=== PATIENT | male | born 1930 | race Caucasian/White ===

== ENCOUNTER 2017-11-28 17:29 | Emergency (ER) | payer MEDICARE ==
--- NOTE | 2017-11-28 18:13 | RAD ---
PORTABLE CHEST: 11/28/17 HISTORY: Cough. Shortness of breath. COMPARISON: 11/28/16 Mild cardiomegaly. Postop sternotomy change. No evidence of focal infiltrate. No evidence of vascular congestion or edema. IMPRESSION: Cardiomegaly. No acute lung process. POS: [facility]
[2017-11-28 19:11] LABS: #Eosinphils 0.4 thou/uL (0.0-0.7); #Lymphocytes 2.2 thou/uL (1.20-3.40); #Monocytes 0.9 thou/uL (0.11-0.59); #Neutrophils 3.8 thou/uL (1.40-6.50); %Basophils 0.6 % (0.0-1.0); %Eosinophils 4.8 % (0.0-10.0); %Lymphocytes 29.6 % (21.0-51.0); %Monocytes 12.3 % (0.0-10.0); %Neutrophils 52.7 % (42.0-75.0); Mean Corpuscular HGB CONC 32.3 g/dL (32.0-36.0); Mean Corpuscular Hemoglobin 32.7 pg (27.0-31.0); Platelet Count 211 thou/uL (130-400); RBC Distribution Width 12.2 % (11.5-14.5); Red Blood Cell (RBC) Count 3.99 mill/uL (4.70-6.10); White Blood Cell (WBC) Count 7.3 thou/uL (4.8-10.8)
[2017-11-28 19:21] LABS: Anion Gap 14 mmol/L (10-20); BUN (Urea Nitrogen) 21 mg/dL (8.4-25.7); Calc. Creatinine Clearance 0 mL/min (70-130); Calcium 8.8 mg/dL (7.8-10.44); Carbon Dioxide 27 mmol/L (23-31); Chloride 101 mmol/L (98-107); Estimated GFR-MDRD 57; Glucose 104 mg/dL (83-110); Potassium 3.5 mmol/L (3.5-5.1); Sodium 138 mmol/L (136-145)
[2017-11-28 19:26] LABS: CKMB 2.3 ng/mL (0-6.6); Troponin I 0.066 ng/mL (< 0.028)
== END 2017-11-28 20:26 | disposition home or self-care (01) ==
LOC: ERS 17:29
DX: R09.89 Other specified symptoms and signs involving the circulatory and respiratory systems (principal); R47.02 Dysphasia; E11.9 Type 2 diabetes mellitus without complications; E78.5 Hyperlipidemia, unspecified; I11.0 Hypertensive heart disease with heart failure; I50.9 Heart failure, unspecified; Z87.891 Personal history of nicotine dependence
CPT/HCPCS: 36415; 71045; 80048; 82553; 83880; 84484; 85025; 93005; 94640

== ENCOUNTER 2018-02-16 11:33 | Emergency (ER) | payer MEDICARE ==
[2018-02-16 12:02] LABS: #Eosinphils 0.4 thou/uL (0.0-0.7); #Lymphocytes 1.5 thou/uL (1.20-3.40); #Monocytes 0.5 thou/uL (0.11-0.59); #Neutrophils 8.3 thou/uL (1.40-6.50); %Basophils 0.1 % (0.0-1.0); %Eosinophils 3.4 % (0.0-10.0); %Lymphocytes 13.7 % (21.0-51.0); %Monocytes 4.8 % (0.0-10.0); Hemoglobin 13.5 g/dL (14.0-18.0); Mean Corpuscular HGB CONC 32.9 g/dL (32.0-36.0); Mean Corpuscular Hemoglobin 31.5 pg (27.0-31.0); Mean Corpuscular Volume 95.6 fl (80.0-94.0); Mean Platelet Volume 7.9 fL (7.4-10.4); Platelet Count 278 thou/uL (130-400); RBC Distribution Width 12.6 % (11.5-14.5); Red Blood Cell (RBC) Count 4.28 mill/uL (4.70-6.10); White Blood Cell (WBC) Count 10.6 thou/uL (4.8-10.8)
--- NOTE | 2018-02-16 12:10 | RAD ---
PORTABLE CHEST 1 VIEW: Date: 02/16/18 Time: 1143 hours HISTORY: Weakness, vomiting, abdominal distention. FINDINGS: Comparison made with exam of 11/28/17. The heart is enlarged. Changes of median sternotomy are again seen. The lungs are well expanded witho ut focal areas of consolidation, pneumothorax, cathy pulmonary edema, or pleural effusions. IMPRESSION: No acute process. POS: [facility]
[2018-02-16 12:23] LABS: ALT (SGPT) 11 U/L (8-55); AST (SGOT) 15 U/L (5-34); Albumin 3.9 g/dL (3.4-4.8); Alkaline Phosphatase 152 U/L (40-150); Anion Gap 15 mmol/L (10-20); BUN (Urea Nitrogen) 26 mg/dL (8.4-25.7); Bilirubin, Total 0.5 mg/dL (0.2-1.2); CK (CPK) 89 U/L (30-200); Calc. Creatinine Clearance 0 mL/min (70-130); Calcium 9.5 mg/dL (7.8-10.44); Carbon Dioxide 25 mmol/L (23-31); Chloride 100 mmol/L (98-107); Estimated GFR-MDRD 51; Globulin 3.1 g/dL (2.4-3.5); Glucose 264 mg/dL (83-110); Potassium 4.2 mmol/L (3.5-5.1); Sodium 136 mmol/L (136-145)
[2018-02-16 12:27] LABS: CKMB 2.7 ng/mL (0-6.6); Troponin I 0.056 ng/mL (< 0.028)
[2018-02-16 13:02] LABS: Bilirubin Negative (Negative); Blood, Urine Small (Negative); Clarity CLEAR (Clear); Glucose, Urine (Dipstick) Negative (Negative); Leukocyte Negative (Negative); Nitrite Negative (Negative); Protein, Urine (Dipstick) Trace mg/dL (Neg-Trace); Specific Gravity, Urine 1.017 (1.002-1.036); pH, Urine 6.5 (5.0-9.0)
[2018-02-16 13:05] LABS: Bacteria/HPF None Seen HPF (None Seen); Hyaline Casts/LPF 0-3 HYALINE CAST LPF (0-3 Hyaline); Pathc Cast-AUWi Flag 0.87 (0-2.49); Squamous Epithelial 0-3 HPF (0-3); WBC/HPF 0-3 HPF (0-3)
--- NOTE | 2018-02-16 13:41 | CT ---
ABDOMEN AND PELVIC CT SCAN WITH IV CONTRAST: Date: 02/16/18 HISTORY: 87-year-old male with history of generalized weakness, nausea, vomiting, abdominal pain and distentio n, and urinary retention. FINDINGS: Small right pleural effusion. Moderate size hiatal hernia. Cardiomegaly with postop midline sternotom y. There is some calcification in the apex of the left ventricle, possibly related to infarct/scar. Cholelithiasis without evidence for gallbladder wall distention or pericholecystic fluid or fat stran ding. The liver, pancreas, and spleen are unremarkable. Small right renal hypodensity. No renal calcu lauren or acute obstruction. Normal appearing appendix. Bilateral fat-containing inguinal hernias, sl ightly larger on the right side. Moreland catheter in place. Bony demineralization with some vertical he ight loss of L2 and L3 with some associated partial fusion. IMPRESSION: 1. No significant acute process in the abdomen or pelvis. 2. Moderate size hiatal hernia. 3. Small right pleural effusion. 4. Cholelithiasis without evidence for cholecystitis. 5. No renal calculus or obstruction. 6. Normal appearing appendix. 7. Left hip nail stabilizes the left hip. POS: [facility]
--- NOTE | 2018-02-16 15:25 | MRI ---
LUMBAR SPINE MRI WITHOUT IV CONTRAST: Date: 02/16/18 HISTORY: Generalized weakness, nausea, vomiting, abdominal pain and distention, and low back pain. FINDINGS: Conus medullaris region is unremarkable, terminating at approximately L1. There is slight vertical he ight loss of L1 vertebral body with fairly extensive marrow edema within the vertebral body, evidence for a compression fracture. There is no significant retropulsion or associated canal stenosis. The t hecal sac below the level of L1 appears distorted, suggesting some chronic arachnoiditis or scarring. No significant canal stenosis at L1-L2. At L2-L3, there is partial fusion which has more the appearance of old surgery, although I do not hav e a history of that. Conceivably, this could be related to old infection, or even possibly old trauma . There is moderate central canal and lateral recess stenosis, worse on the right side, at L2-L3. Isiaah ateral foraminal stenosis at this level as well, worse on the right side. Mild lateral recess stenosis at L3-L4 with moderate bilateral foraminal stenosis. Disc space narrowing and hypertrophic osteophytosis at L4-L5 with mild bilateral lateral recess steno sis and moderate bilateral foraminal stenosis. Moderate lateral recess stenosis and foraminal stenosis at L5-S1. IMPRESSION: Abnormal marrow signal involving the L1 vertebral body with very slight vertical height loss, evidenc e for acute compression-type fracture, without evidence for retropulsion. Fusion changes at L2-L3 of uncertain etiology, with moderate to severe central canal and lateral recess stenosis and foraminal s tenosis. Otherwise multilevel variable severity canal, lateral recess, and foraminal stenosis. POS: [facility]
[2018-02-16] MEDS ORDERED: ISOVUE-370 76%-LOCM 1 ML ONE (18:30)
== END 2018-02-16 16:59 | disposition home or self-care (01) ==
LOC: ERS 11:33
DX: R53.1 Weakness (principal); M84.48XA Pathological fracture, other site, initial encounter for fracture; M85.80 Other specified disorders of bone density and structure, unspecified site; E11.9 Type 2 diabetes mellitus without complications; E78.5 Hyperlipidemia, unspecified; I25.2 Old myocardial infarction; I11.0 Hypertensive heart disease with heart failure; I50.9 Heart failure, unspecified; Z86.73 Personal history of transient ischemic attack (TIA), and cerebral infarction without residual deficits; Z87.891 Personal history of nicotine dependence
CPT/HCPCS: 51702; 71045; 72148; 74177; 80053; 81003; 81015; 82553; 83605; 83880; 84484; 85025; 87086; 93005

== ENCOUNTER 2018-03-05 21:40 | Emergency (ER) | payer MEDICARE ==
[2018-03-05 22:47] LABS: #Eosinphils 0.3 thou/uL (0.0-0.7); #Lymphocytes 1.6 thou/uL (1.20-3.40); #Monocytes 0.6 thou/uL (0.11-0.59); #Neutrophils 5.1 thou/uL (1.40-6.50); %Basophils 0.6 % (0.0-1.0); %Eosinophils 4.2 % (0.0-10.0); %Monocytes 7.4 % (0.0-10.0); %Neutrophils 66.8 % (42.0-75.0); Hemoglobin 13.4 g/dL (14.0-18.0); Mean Corpuscular HGB CONC 33.7 g/dL (32.0-36.0); Mean Platelet Volume 7.9 fL (7.4-10.4); Platelet Count 302 thou/uL (130-400); RBC Distribution Width 12.7 % (11.5-14.5); Red Blood Cell (RBC) Count 4.17 mill/uL (4.70-6.10); White Blood Cell (WBC) Count 7.6 thou/uL (4.8-10.8)
[2018-03-05 23:08] LABS: ALT (SGPT) 9 U/L (8-55); AST (SGOT) 12 U/L (5-34); Albumin 3.6 g/dL (3.4-4.8); Alkaline Phosphatase 173 U/L (40-150); Anion Gap 14 mmol/L (10-20); BUN (Urea Nitrogen) 20 mg/dL (8.4-25.7); Bilirubin, Total 0.6 mg/dL (0.2-1.2); Calc. Creatinine Clearance 0 mL/min (70-130); Calcium 9.3 mg/dL (7.8-10.44); Carbon Dioxide 26 mmol/L (23-31); Chloride 103 mmol/L (98-107); Estimated GFR-MDRD 55; Glucose 281 mg/dL (83-110); Protein, Total 6.6 g/dL (5.8-8.1); Sodium 139 mmol/L (136-145)
[2018-03-05 23:11] LABS: CKMB 2.1 ng/mL (0-6.6); Troponin I 0.038 ng/mL (< 0.028)
[2018-03-05] MEDS ORDERED: traMADol HCl 50 MG TAB ONE (23:39)
[2018-03-05 23:58] LABS: Bilirubin Negative (Negative); Blood, Urine Negative (Negative); Clarity CLOUDY (Clear); Glucose, Urine (Dipstick) 250 mg/dL (Negative); Leukocyte Moderate (Negative); Nitrite Negative (Negative); Protein, Urine (Dipstick) Trace mg/dL (Neg-Trace); Specific Gravity, Urine 1.014 (1.002-1.036); Urobilinogen 0.2 mg/dL (0.2-1.0); pH, Urine 5.5 (5.0-9.0)
[2018-03-06 00:01] LABS: Bacteria/HPF Rare-Few HPF (None Seen); Hyaline Casts/LPF 0-3 HYALINE CAST LPF (0-3 Hyaline); Pathc Cast-AUWi Flag 0.14 (0-2.49); RBC/HPF None Seen HPF (0-3); Squamous Epithelial 0-3 HPF (0-3); Yeast-AUWi Flag 9.1 (0-25.0)
[2018-03-06 00:18] LABS: Oval Fat Bodies/HPF None Seen HPF (None Seen); Renal Epithelial 0-3 HPF (0-3); Sperm/HPF None Seen HPF (None Seen); Transitional Epithelial NONE SEEN HPF (0-3); Trichomonas/HPF None Seen HPF (None Seen); Yeast-All Forms None Seen HPF (None Seen)
== END 2018-03-06 00:49 | disposition home or self-care (01) ==
LOC: ERS 21:40
DX: E11.65 Type 2 diabetes mellitus with hyperglycemia (principal); N39.0 Urinary tract infection, site not specified; E78.5 Hyperlipidemia, unspecified; I25.2 Old myocardial infarction; I11.0 Hypertensive heart disease with heart failure; I50.9 Heart failure, unspecified; Z86.73 Personal history of transient ischemic attack (TIA), and cerebral infarction without residual deficits; Z87.891 Personal history of nicotine dependence; Z79.899 Other long term (current) drug therapy; Z79.4 Long term (current) use of insulin; Z79.82 Long term (current) use of aspirin
CPT/HCPCS: 36416; 51701; 80053; 81003; 81015; 82553; 84484; 85025; 87077; 87086; 93005

== ENCOUNTER 2018-04-03 15:03 | Outpatient (CLI) | payer MEDICARE ==
--- NOTE | 2018-04-03 15:47 | RAD ---
RADIOGRAPH LUMBAR SPINE 2 VIEWS: 04/03/18 HISTORY: 87-year-old male with ICD-10: M48.56XA collapsed vertebra. COMPARISON: There are no prior plain radiographs of the lumbar spine. There is a noncontrast MRI of the lumbar sp ine of 02/16/18. FINDINGS: There is severe, diffuse osteopenia. On the MRI of 02/16/18, there was what was then an acute or subacu te compression fracture of L1, with only mild loss of height. That has severely worsened, such that t he L1 vertebral body is now collapsed, with 75% loss of height or greater, especially anteriorly. The re is some bony retropulsion qualifying this as a burst fracture. An old compression fracture of L2 vertebral body was demonstrated on a previous MRI. It is uncertain whether or not the loss of height has slightly worsened since then. It probably has. There is somewha t severe disc space narrowing at L4-5 and L5-S1. IMPRESSION: 1. Further collapse of the L1 compression fracture, now with severe loss of height. 2. Probable further loss of height of the L2 compression fracture. 3. High grade degenerative disc disease at L4-5 and L5-S1. 4. Severe, diffuse osteopenia. JN [] POS: [facility]
== END 2018-04-03 15:04 | disposition home or self-care (01) ==
LOC: TBSIIMAG 15:03
PROVIDERS: ATTEND Neurological Surgery
DX: M48.56XA Collapsed vertebra, not elsewhere classified, lumbar region, initial encounter for fracture (principal); R29.890 Loss of height; M51.37 Other intervertebral disc degeneration, lumbosacral region; M51.36 Other intervertebral disc degeneration, lumbar region; M85.80 Other specified disorders of bone density and structure, unspecified site
CPT/HCPCS: 72100

== ENCOUNTER 2018-04-11 13:47 | Emergency (ER) | payer MEDICARE ==
[2018-04-11 14:25] LABS: #Eosinphils 0.2 thou/uL (0.0-0.7); #Lymphocytes 1.4 thou/uL (1.20-3.40); #Monocytes 0.6 thou/uL (0.11-0.59); #Neutrophils 5.7 thou/uL (1.40-6.50); %Basophils 0.6 % (0.0-1.0); %Eosinophils 2.3 % (0.0-10.0); %Lymphocytes 17.9 % (21.0-51.0); %Monocytes 7.2 % (0.0-10.0); Hemoglobin 13.1 g/dL (14.0-18.0); Mean Corpuscular HGB CONC 33.3 g/dL (32.0-36.0); Mean Corpuscular Hemoglobin 32.1 pg (27.0-31.0); Mean Corpuscular Volume 96.5 fL (78.0-98.0); Mean Platelet Volume 9.4 fL (7.4-10.4); Platelet Count 186 thou/uL (130-400); RBC Distribution Width 13.1 % (11.5-14.5); Red Blood Cell (RBC) Count 4.07 mill/uL (4.70-6.10); White Blood Cell (WBC) Count 7.9 thou/uL (4.8-10.8)
--- NOTE | 2018-04-11 14:47 | RAD ---
PORTABLE AP CHEST RADIOGRAPH: Date: 04-11-18 History: Irregular heartbeat. Comparison: 02-16-18 FINDINGS: Post-surgical changes related to median sternotomy are again present. There is a fracture of the supe rior sternal wire. Cardiac silhouette is magnified by projection and likely mildly enlarged and stabl e in size from prior study. Pulmonary vasculature is within normal limits. Lungs are clear. There is osteopenia. There has been no interval change from prior exam. IMPRESSION: No acute cardiopulmonary process. POS: [facility]
[2018-04-11 14:49] LABS: ALT (SGPT) 11 U/L (8-55); AST (SGOT) 16 U/L (5-34); Albumin 3.6 g/dL (3.4-4.8); Alkaline Phosphatase 144 U/L (40-150); Anion Gap 10 mmol/L (10-20); BUN (Urea Nitrogen) 15 mg/dL (8.4-25.7); Bilirubin, Total 0.4 mg/dL (0.2-1.2); Calc. Creatinine Clearance 0 mL/min (70-130); Calcium 9.1 mg/dL (7.8-10.44); Carbon Dioxide 25 mmol/L (23-31); Chloride 104 mmol/L (98-107); Estimated GFR-MDRD 59; Globulin 2.5 g/dL (2.4-3.5); Glucose 226 mg/dL (83-110); Magnesium 1.7 mg/dL (1.6-2.6); Potassium 3.9 mmol/L (3.5-5.1); Protein, Total 6.1 g/dL (5.8-8.1); Sodium 135 mmol/L (136-145)
== END 2018-04-11 16:11 | disposition home or self-care (01) ==
LOC: ERS 13:47
DX: I49.3 Ventricular premature depolarization (principal); E11.9 Type 2 diabetes mellitus without complications; I25.2 Old myocardial infarction; I11.0 Hypertensive heart disease with heart failure; I50.9 Heart failure, unspecified; Z87.891 Personal history of nicotine dependence; Z79.899 Other long term (current) drug therapy
CPT/HCPCS: 36415; 36416; 71045; 80053; 83735; 83880; 84484; 85025; 93005

== ENCOUNTER 2018-05-22 10:55 | Outpatient (CLI) | payer MEDICARE ==
--- NOTE | 2018-05-22 13:38 | MRI ---
MRI LUMBAR SPINE WITHOUT CONTRAST: HISTORY: Closed compression fracture, S32.02A, S32.030A. COMPARISON: Lumbar spine radiographs from 04/03/2018 and MRI from 02/16/2018. FINDINGS: Aortic contour is nonaneurysmal. No retroperitoneal adenopathy. Mild bilateral symmetric paraspinal muscle atrophy. Relative to the prior examination, there is worsened height loss of the T12 compression fracture with approximately 30% anterior height loss, 60% height loss of the superior endplate, and 15% posterior vertebral body height loss. There is retropulsion, approximately 5 mm. There is crowding of the ner ve roots with narrowing of the spinal canal to approximately 7 mm centrally. There is new stress paradise ma of the posterior elements bilaterally. At T12, there is new stress edema of the anterior-inferior vertebral body, predominantly on the anterior vertebral body, extending to the right side of the divya tebral body; stress type fracture. The remainder of the findings are unchanged. Multilevel superior degenerative changes. Healing modic type changes of the L4 superior endplate. IMPRESSION: 1. Further height loss of the L1 compression fracture, now with greater than 50% superior endplate h eight loss, as well as height loss of the anterior and posterior vertebral body with retropulsion, 4 mm, narrowing of the spinal canal and crowding of the nerve roots. 2. New stress type fracture without height loss of the T12 anterior vertebral body, extending from c entral anterior to right posterior, without posterior element extension. 3. Stress edema of the posterior elements of L1 bilaterally. 4. Healing modic changes of the superior endplate of L4. 5. New prevertebral soft tissue swelling at the level of T12 and L1 may be reflective of the underly ing fracture. There is, however, extensive loss of normal T1 signal of the L1 vertebral body. An un derlying infectious process cannot be totally excluded, and a post contrast study may be beneficial. POS: [facility]
== END 2018-05-22 10:56 | disposition home or self-care (01) ==
LOC: MRI 10:55
PROVIDERS: ATTEND Specialist
DX: M48.56XA Collapsed vertebra, not elsewhere classified, lumbar region, initial encounter for fracture (principal); M48.44XA Fatigue fracture of vertebra, thoracic region, initial encounter for fracture
CPT/HCPCS: 72148

== ENCOUNTER 2018-06-19 12:44 | Outpatient (CLI) | payer MEDICARE ==
[2018-06-19] MEDS ORDERED: Gadobenate Dimeglumine 529 MG/1 ML (20ML VIAL) ONE (12:55)
--- NOTE | 2018-06-20 11:40 | MRI ---
MRI LUMBAR SPINE WITH CONTRAST: COMPARISON: 02/16/2018, 05/22/2018. FINDINGS: On the sagittal T2 weighted image, there is persistent linear hyperintensity on the superior end plat e of L1. Both contrast images demonstrate heterogeneous enhancement. There is evidence of enhanceme nt involving the anterior inferior T12 level. There is evidence of enhancement of the anterior left and right paraspinal tissues as well as along the posterior aspect of the L1 vertebral body, along th e anterior epidural space. When compared to the most recent examination, there is no significant los s of vertebral body height. When compared to the examination of February 2018, there is loss of vertebra l body height. There is retropulsion at L1 with at least moderate central canal stenosis. Severe ri ght and left foraminal narrowing. There is no abnormal enhancement in the thecal sac including the cauda equina and conus medullaris. IMPRESSION: Stable linear edema involving the superior aspect of L1 with stable loss of vertebral body height. T here is evidence of enhancement involving the T12 and L1 vertebral bodies, with heterogeneous enhance ment at L1. There is evidence of paraspinal and anterior epidural enhancement. Phlegmonous tissue v ersus posttraumatic paraspinal soft tissue changes are differential considerations. An underlying in fectious process such as osteomyelitis at L1 and T12 cannot be excluded. Non contrast sagittal T1 im ages would be beneficial. Continued surveillance is recommended. POS: [facility]
== END 2018-06-19 12:45 | disposition home or self-care (01) ==
LOC: MRI 12:44
PROVIDERS: ATTEND Specialist
DX: S22.080A Wedge compression fracture of T11-T12 vertebra, initial encounter for closed fracture (principal)
CPT/HCPCS: 72149; A9579

== ENCOUNTER 2018-08-12 08:55 | Inpatient (IN) | payer MEDICARE ==
[2018-08-12] MEDS ORDERED: Albuterol Sulfate 2.5 mg/3 ml Neb ONE (09:08)
[2018-08-12 09:42] LABS: #Basophils 0.1 thou/uL (0.0-0.2); #Eosinphils 0.1 thou/uL (0.0-0.7); #Lymphocytes 1.6 thou/uL (1.20-3.40); #Monocytes 0.4 thou/uL (0.11-0.59); %Lymphocytes 22.5 % (21.0-51.0); %Monocytes 5.1 % (0.0-10.0); %Neutrophils 69.4 % (42.0-75.0); Hemoglobin 12.1 g/dL (14.0-18.0); Mean Corpuscular HGB CONC 32.5 g/dL (32.0-36.0); Mean Corpuscular Hemoglobin 30.7 pg (27.0-31.0); Mean Corpuscular Volume 94.5 fL (78.0-98.0); Mean Platelet Volume 9.2 fL (7.4-10.4); Platelet Count 235 thou/uL (130-400); RBC Distribution Width 13.2 % (11.5-14.5); Red Blood Cell (RBC) Count 3.95 mill/uL (4.70-6.10); White Blood Cell (WBC) Count 7.2 thou/uL (4.8-10.8)
[2018-08-12 10:03] LABS: Bilirubin Negative (Negative); Blood, Urine Negative (Negative); Clarity CLEAR (Clear); Glucose, Urine (Dipstick) 100 mg/dL (Negative); Leukocyte Negative (Negative); Nitrite Negative (Negative); Protein, Urine (Dipstick) Trace mg/dL (Neg-Trace); Specific Gravity, Urine 1.016 (1.002-1.036)
[2018-08-12 10:05] LABS: ALT (SGPT) 12 U/L (8-55); AST (SGOT) 14 U/L (5-34); Albumin 3.2 g/dL (3.4-4.8); Alkaline Phosphatase 157 U/L (40-150); Anion Gap 13 mmol/L (10-20); BUN (Urea Nitrogen) 15 mg/dL (8.4-25.7); Bilirubin, Total 0.5 mg/dL (0.2-1.2); Calc. Creatinine Clearance 0 mL/min (70-130); Calcium 8.4 mg/dL (7.8-10.44); Carbon Dioxide 24 mmol/L (23-31); Chloride 105 mmol/L (98-107); Estimated GFR-MDRD 61; Globulin 2.8 g/dL (2.4-3.5); Glucose 211 mg/dL (83-110); Potassium 3.6 mmol/L (3.5-5.1); Sodium 138 mmol/L (136-145)
[2018-08-12 10:09] LABS: CKMB 1.3 ng/mL (0-6.6); Troponin I 0.031 ng/mL (< 0.028)
[2018-08-12] MEDS ORDERED: Furosemide 40 MG/4 ML VIAL ONE ×2 (10:38→14:05)
[2018-08-12] MEDS ORDERED: Nitroglycerin 2% Ointment 1 INCH/1 GM Packet ONE (10:38)
--- NOTE | 2018-08-12 10:41 | RAD ---
RADIOGRAPH CHEST 1 VIEW: Date: 08-12-18 Time: 9:08 A.M. HISTORY: 88-year-old male with dyspnea and cough. COMPARISON: 02-16-18 FINDINGS: Again noted are the sternotomy wires and the cardiomegaly. There is pulmonary venous engorgement. No consolidation. Interstitial markings are prominent, and there is questionable minimal pulmonary inter stitial edema. No pneumothorax. Mild streaky density at left lower lobe may represent scar or subsegm ental atelectasis. IMPRESSION: 1. Cardiomegaly. 2. Findings suggestive of minimal or mild congestive heart failure. CASH POS: [facility]
[2018-08-12] MEDS ORDERED: Diabetic Tussin 200 MG/10 ML UDCUP PO PRN (11:27)
[2018-08-12] MEDS ORDERED: Nitroglycerin 0.4 MG TAB (25 Tab Bottle) SL PRN (11:27)
[2018-08-12] MEDS ORDERED: Loratadine 10 MG TAB PO PRN (11:27)
[2018-08-12] MEDS ORDERED: hydrALAZINE 20 MG/ML VIAL SLOW IVP PRN (11:27)
[2018-08-12] MEDS ORDERED: Eucerin (Mineral Oil/Petrolatum,White) 30 gm Jar TOP PRN (11:27)
[2018-08-12] MEDS ORDERED: Dextrose 5% in Water 1,000 ML IV PRN (11:27)
[2018-08-12] MEDS ORDERED: Bisacodyl 10 MG SUPP PR PRN (11:27)
[2018-08-12] MEDS ORDERED: Acetaminophen 325 MG TAB PO PRN (11:27)
[2018-08-12] MEDS ORDERED: Ondansetron PF 4 MG/2 ML Vial IVP PRN (11:27)
[2018-08-12] MEDS ORDERED: HYDROcodone/Acetaminophen 5/325 mg Tablet PO PRN (11:27)
[2018-08-12] MEDS ORDERED: Loperamide HCl 2 MG CAP PO PRN (11:27)
[2018-08-12] MEDS ORDERED: Calcium Carbonate 500 MG ChewTAB PO PRN (11:27)
[2018-08-12] MEDS ORDERED: Dextrose 50% Abboject 50 ML SYRINGE SLOW IVP PRN (11:27)
[2018-08-12] MEDS ORDERED: Bisacodyl 5 MG TAB PO PRN (11:27)
[2018-08-12] MEDS ORDERED: Senokot S 8.6-50 MG TAB PO PRN (11:27)
[2018-08-12] MEDS ORDERED: Zolpidem Tartrate 5 MG TAB PO PRN (11:27)
[2018-08-12] MEDS ORDERED: Ondansetron ODT 4 MG TAB PO PRN (11:27)
[2018-08-12] MEDS ORDERED: Sodium Chloride 0.65% Nasal 44 ML BOT EA NARE PRN (11:27)
[2018-08-12] MEDS ORDERED: Artificial Tears 18 DROP/0.9 ML EA EYE PRN (11:27)
--- NOTE | 2018-08-12 12:30 | HP ---
PRIMARY CARE PHYSICIAN: Shaheen Knox M.D. REASON FOR ADMISSION: Mild congestive heart failure exacerbation. HISTORY OF PRESENT ILLNESS: This is an 88-year-old male, who lives at home. He is mostly bed bound, only able to get out of bed with a walker to wheelchair. He has baseline NYHA 3-4 stage dyspnea. For the last 2-3 days, the patient's family member noticed that he has increasing shortness of breath. Family member also reports that he was recently diagnosed with bronchitis and he was given antibiotic therapy that did not improve his shortness of breath. He is having cough. He is having orthopnea. He has lower extremity edema. He did not have any fever, chills, palpitations, or chest pain. Family member was worried about shortness of breath and that is why they brought him to emergency room for evaluation. Unfortunately, this patient has underlying cognitive deficit and dementia. He cannot provide any good history, but family member, daughter, and were present, who provided history. The patient did not have any UTI symptoms. He did not have any constipation, diarrhea, melena, hematochezia. REVIEW OF SYSTEMS: The following complete review of systems was negative, unless otherwise mentioned in the HPI or below: Constitutional: Weight loss or gain, ability to conduct usual activities. Skin: Rash, itching. Eyes: Double vision, pain. ENT/Mouth: Nose bleeding, neck stiffness, pain, tenderness. Cardiovascular: Palpitations, dyspnea on exertion, orthopnea. Respiratory: Shortness of breath, wheezing, cough, hemoptysis, fever, or night sweats. Gastrointestinal: Poor appetite, abdominal pain, heartburn, nausea, vomiting, constipation, or diarrhea. Genitourinary: Urgency, frequency, dysuria, nocturia. Musculoskeletal: Pain, swelling. Neurologic/Psychiatric: Anxiety, depression. Allergy/Immunologic: Skin rash, bleeding tendency. Above -mentioned review of systems is not reliable, because of patient's baseline cognitive deficit. Please see my HPI for further detail. PAST MEDICAL HISTORY: Diabetes, type 2; hypertension; dyslipidemia; history of stroke; coronary artery disease; chronic congestive heart failure; benign enlargement of prostate; chronic physical deconditioning. PAST SURGICAL HISTORY: The patient has history of left tibia fracture, required surgical intervention; CABG; cardiac catheterization with stent placement; left hip and femur repair; cholecystectomy; left renal artery stenosis and stenting; lens implant in both eyes. PAST PSYCHIATRIC HISTORY: Anxiety, depression, and dementia. SOCIAL HISTORY: Patient is . He lives with his and family. He is mostly bed bound. He does not have any tobacco, alcohol, or illicit drug abuse history. ALLERGIES: No known drug allergy. FAMILY HISTORY: The patient does not have any strong family history of coronary artery disease or stroke. Father had stomach cancer. CURRENT HOME MEDICATIONS: Potassium chloride 20 mEq p.o. daily, amlodipine 10 mg daily, Plavix 75 mg daily, Lasix 80 mg daily, Paxil 30 mg daily, lisinopril 10 mg daily, aspirin 81 mg daily, Avodart 0.5 mg p.o. daily, insulin 25 units subcu daily. EMERGENCY ROOM COURSE: Patient has received aspirin 325 mg, nitro patch, Lasix 40 mg, albuterol nebulization. PHYSICAL EXAMINATION: VITAL SIGNS: Currently in the emergency room, blood pressure 140/68, pulse 97, respiratory rate 22, temperature 98.3, saturation 96% on room air, weight 84.1 kilograms. GENERAL: Patient is currently alert, awake, in no obvious acute distress. Mild short of breath. HEENT: Head: Normocephalic, atraumatic. Eyes: Pupils round and reactive to light. Extraocular muscle intact. ENT: Oropharynx within normal limits. Moist mucous membranes. No oral lesion, no pharyngeal erythema, no exudate. NECK: Supple, no JVD, no thyromegaly, no carotid bruit. LUNGS: Coarse breath sound with rhonchi and wheeze, but no obvious rales heard. CARDIAC: S1 and S2 appears regular. No murmur, no gallop, no rub. ABDOMEN: Soft, bowel sounds present, nontender, nondistended. No organomegaly , no mass, no suprapubic tenderness. BACK EXAMINATION: Unremarkable, no CVA tenderness. EXTREMITIES: Upper extremities, passive movement of all joints are normal. Lower extremities, trace bilateral lower extremity pitting edema noted. Good distal pulsation. SKIN: No skin rash. HEMATOLOGICAL SYSTEM: No lymphadenopathy. PSYCHIATRIC: Normal affect. SIGNIFICANT LABORATORY DATA: EKG showing atrial pacemaker rhythm, nonspecific ST-T changes. Chest x-ray, is showing and reviewed by me, cardiomegaly and pulmonary vascular congestion. CBC: WBC 7.2, hemoglobin 12.1, platelets 235. BMP: Sodium 138, potassium 3.6, chloride 105, carbon dioxide 24, BUN 15, creatinine 1.13, glucose 211. Lactic acid 1.0. LFT: AST 14, ALT 12, alkaline phosphatase is 157, albumin 3.2, CK-MB 1.3, troponin 0.031. BNP 600.3. Urinalysis normal. ASSESSMENT AND PLAN: 1. Acute congestive heart failure exacerbation, diastolic, stage C. The patient has increasing dyspnea. He was treated as bronchitis without any clinical improvement. He has edema of lower extremity, elevated BNP, and previous echocardiographic finding of diastolic dysfunction. Most likely, the patient has underlying diastolic heart failure. We will treat him with Lasix 40 mg IV b.i.d. We will obtain echocardiography to assess ejection fraction and other structural abnormality. We will repeat labs including CBC, BMP, TSH, magnesium, and uric acid tomorrow. We will monitor renal function. Replace electrolytes as needed basis. We will resume his home medications, amlodipine 10 mg daily and lisinopril 20 mg p.o. daily. 2. Coronary artery disease with history of coronary artery bypass grafting. Continue aspirin 81 mg p.o. daily, Plavix 75 mg p.o. daily, Lipitor 40 mg p.o. at bedtime. Currently, patient does not have any angina. His troponin is indeterminate range, which we will trend with serial cardiac enzyme, but in the past, he also had elevated troponin. 3. Benign enlargement of prostate. The patient is taking at home, Avodart and Flomax, which will continue after confirmation. 4. Anxiety and depression. We will continue Paxil 20 mg p.o. daily after confirmation. 5. Hypertension. We will continue with amlodipine 10 mg p.o. daily, lisinopril 20 mg daily, Lasix, and titrate blood pressure medication as tolerated. 6. Gastroesophageal reflux disease. We will continue Pepcid 20 mg p.o. b.i.d. 7. Chronic kidney disease, stage 3. We will monitor renal function. 8. Diabetes, type 2. Insulin as per sliding scale protocol. Diabetic diet will be given once we verify patient's insulin dose. We will resume while in hospital. 9. Deep venous thrombosis prophylaxis. Lovenox 40 mg subcutaneous daily. 10. Gastrointestinal prophylaxis. Pepcid 20 mg p.o. b.i.d. 11. Code status: The patient is DNR and that is confirmed after discussion with the patient's at bedside in the emergency room. We are expecting patient's stay in hospital 24-48 hours. Once patient is euvolemic, then we will consider discharging him home with family support. Plan of care discussed with the family member at bedside in the emergency room. JESS
[2018-08-12] MEDS ORDERED: Aspirin 325 MG TAB ONE (13:28)
[2018-08-12] MEDS: Furosemide 40 MG/4 ML VIAL SLOW IVP SCH (14:12)
[2018-08-12 15:40] LABS: Troponin I 0.029 ng/mL (< 0.028)
[2018-08-12] MEDS: HumaLOG 300 UNITS/3 ML VIAL SC PRN (21:04)
[2018-08-12] MEDS: Famotidine 20 MG TAB PO SCH (21:04)
[2018-08-13] MEDS ORDERED: diphenhydrAMINE 50 MG/ML VIAL IVP SCH (01:45)
[2018-08-13 02:03] LABS: #Lymphocytes 0.5 thou/uL (1.20-3.40); #Monocytes 0.2 thou/uL (0.11-0.59); #Neutrophils 4.1 thou/uL (1.40-6.50); %Eosinophils 0.1 % (0.0-10.0); Hemoglobin 10.7 g/dL (14.0-18.0); Mean Corpuscular HGB CONC 32.8 g/dL (32.0-36.0); Mean Corpuscular Hemoglobin 31.1 pg (27.0-31.0); Mean Corpuscular Volume 94.9 fL (78.0-98.0); Mean Platelet Volume 9.3 fL (7.4-10.4); Platelet Count 234 thou/uL (130-400); RBC Distribution Width 13.2 % (11.5-14.5); Red Blood Cell (RBC) Count 3.45 mill/uL (4.70-6.10); White Blood Cell (WBC) Count 4.8 thou/uL (4.8-10.8)
[2018-08-13 02:32] LABS: Anion Gap 13 mmol/L (10-20); BUN (Urea Nitrogen) 24 mg/dL (8.4-25.7); Calc. Creatinine Clearance 44 mL/min (70-130); Calcium 8.4 mg/dL (7.8-10.44); Carbon Dioxide 26 mmol/L (23-31); Chloride 105 mmol/L (98-107); Estimated GFR-MDRD 48; Glucose 456 mg/dL (83-110); Magnesium 1.9 mg/dL (1.6-2.6); Potassium 3.9 mmol/L (3.5-5.1); Sodium 140 mmol/L (136-145); Uric Acid 6.8 mg/dL (3.5-7.2)
[2018-08-13] MEDS: Furosemide 40 MG/4 ML VIAL SLOW IVP SCH ×2 (06:30→14:39)
[2018-08-13] MEDS: HumaLOG 300 UNITS/3 ML VIAL SC PRN ×2 (06:31→11:29)
[2018-08-13] MEDS: Enoxaparin Sodium 40 MG/0.4 ML SYRINGE SC SCH (08:32)
[2018-08-13] MEDS ORDERED: Prevnar 13-Val Conj/PF 0.5 ML SYRINGE IM ONE (09:00)
[2018-08-13] MEDS ORDERED: Insulin Glargine 20 UNITS in Pre-Filled Syringe 1 EACH SC SCH (11:00)
[2018-08-13] MEDS: Famotidine 20 MG TAB PO SCH ×2 (12:41→20:49)
--- NOTE | 2018-08-13 18:24 | CT ---
CT BRAIN WITHOUT CONTRAST: Date: 08/13/18 HISTORY: Encephalopathy. Altered mental status. FINDINGS: Comparison made with exam of 09/18/16. Changes of cortical atrophy, chronic small vessel ischemic disease, and old lacunar infarcts in the b jennifer ganglia and thalami are again seen. Old infarction in the right cerebellar hemisphere is again n oted. Ventricular size is appropriate and basilar cisterns are patent. No evidence of acute infarct, hemorrhage, midline shift, or abnormal extra-axial fluid collections are seen. The bony calvarium is intact. The visualized paranasal sinuses and mastoid air cells are well aerated. IMPRESSION: No CT evidence of acute intracranial process. POS: [facility]
--- NOTE | 2018-08-13 18:55 | PRG ---
DATE OF SERVICE: 08/13/2018 SUBJECTIVE: I rounded on the patient this morning and the patient was a bit somnolent. Nurses reported that he had been up till after 5 o'clock this morning and I felt his somnolence was appropriate. The patient was awakened and was able to tell me that he felt like he was doing a little better that his breathing had improved since admission. I came to reevaluate the patient this afternoon and he is at least as somnolent if not more somnolent than he was this morning. He is a bit more difficult to awake and he does eventually awaken enough to tell me his first and last name. He does not appear to have other specific neurologic deficits. OBJECTIVE: VITAL SIGNS: Temperature is 97.4, pulse 83, respirations 16 to 20, O2 saturation 93% to 97% on room air, and blood pressure is 136/63. GENERAL APPEARANCE: The patient is again somnolent. He can be awakened, but it does require something more aggressive like a sternal rub. HEART: Regular without murmurs. LUNGS: Revealed some scattered rales, but fair air exchange. ABDOMEN: Appears to be soft and nondistended. There is no evidence of tenderness on palpation. EXTREMITIES: Warm and dry without significant edema presently. LABORATORY DATA: White count 4.8, hemoglobin 10.7, and platelets 234. Sodium 140, potassium 3.9, chloride 105, CO2 is 26, BUN is 24, creatinine is 1.4, and glucose is 276. On the most recent lab value, uric acid 6.8, calcium 8.4, magnesium 1.9, TSH 0.677. Troponin 0.03 x3. Blood cultures are negative. IMPRESSION AND PLAN: 1. Evidence of acute congestive heart failure. Echocardiogram has been ordered, results are pending. He has been diuresed. I am going to actually stop the diuresis for now and await results on the echocardiogram. Apparently, the patient had previous echocardiographic findings and diastolic dysfunction although I personally not been able to find any prior echocardiogram reports within the electronic health record. 2. Encephalopathy. The patient appears to be hypersomnolent, do not have the good explanation for that presently. I did talk to his daughter, who is his medical [id number] and a nurse, who indicates that the patient has recently actually been borderline manic and has been almost restless at times. She said he has had some benadryl at times at night and has been on Trintellix, and was concerned that he was having some anticholinergic effect from the Benadryl or some serotonin syndrome from the Trintellix, but she indicated that this was definitely not normal for him. We will go ahead and order a CT scan of his head. Of note, his urinalysis was unremarkable. He had no evidence of pneumonia. He has had no fever, no white count, to suggest underlying infection. He does have history of multiple TIAs and strokes, which have all been ischemic. We will therefore evaluate for possible stroke, although he does not appear to have any other localizing neurologic symptoms other than the generalized encephalopathy making CVA less likely. 3. History of coronary artery disease, status post bypass surgery. His daughter indicates that these troponin levels are typical for him. 4. History of anxiety and depression. The patient was on Trintellix at home, that is not formulary here. Plan is to continue with Paxil, however, that has not been ordered as of yet, we will go ahead and initiate that to ensure he is not having some type of serotonin withdrawal type syndrome, although I suspect that unlikely typically manifest this way. The patient also has Ambien ordered, which I will discontinue and I will also discontinue Zofran and try to avoid any other sedating medications. 5. Diabetes mellitus. The patient is on long-acting insulin at home, which is not on formulary for us. His blood sugars were very high overnight. They are better now with some Lantus this morning and continue sliding scale coverage through the day. 6. History of hypertension. Continue amlodipine and lisinopril. 7. History of reflux, Pepcid 20 b.i.d. 8. Chronic kidney disease stage 3, stable. No evidence of uremia. 9. BPH. Continue Avodart and Flomax. CODE STATUS: The patient was initially made DNR after Dr. Stephen spoke to the patient's family in the Emergency Department; however, Palliative Care spoke with the today. She indicated that she did not want the patient to be DNR. I talked to the patient's daughter about this after I attempted to call the patient's and she did not answer. The patient's daughter again indicates that she does in fact have medical [id number] and agrees with revocation of the DNR order. She is very clear that she would not want him to undergo anything prolonged or prominence and situationally, the plan could change, but for now, we will go ahead and remove the DNR and make the patient FULL CODE. Job ID: [id number]
[2018-08-13] MEDS: Dextrose 5 %-0.45 % NaCl 1,000 ML IV SCH (23:02)
[2018-08-14 06:35] LABS: #Eosinphils 0.1 thou/uL (0.0-0.7); #Lymphocytes 2.4 thou/uL (1.20-3.40); #Monocytes 0.5 thou/uL (0.11-0.59); #Neutrophils 6.6 thou/uL (1.40-6.50); %Basophils 0.1 % (0.0-1.0); %Eosinophils 1.1 % (0.0-10.0); %Lymphocytes 25.1 % (21.0-51.0); %Monocytes 5.5 % (0.0-10.0); %Neutrophils 68.3 % (42.0-75.0); Hemoglobin 11.9 g/dL (14.0-18.0); Mean Corpuscular HGB CONC 32.1 g/dL (32.0-36.0); Mean Corpuscular Hemoglobin 30.7 pg (27.0-31.0); Mean Corpuscular Volume 95.9 fL (78.0-98.0); Mean Platelet Volume 8.7 fL (7.4-10.4); Platelet Count 284 thou/uL (130-400); RBC Distribution Width 13.3 % (11.5-14.5); Red Blood Cell (RBC) Count 3.86 mill/uL (4.70-6.10); White Blood Cell (WBC) Count 9.7 thou/uL (4.8-10.8)
[2018-08-14 06:59] LABS: Anion Gap 12 mmol/L (10-20); BUN (Urea Nitrogen) 21 mg/dL (8.4-25.7); Calc. Creatinine Clearance 55 mL/min (70-130); Calcium 8.3 mg/dL (7.8-10.44); Carbon Dioxide 25 mmol/L (23-31); Chloride 109 mmol/L (98-107); Estimated GFR-MDRD 65; Glucose 84 mg/dL (83-110); Potassium 3.3 mmol/L (3.5-5.1); Sodium 143 mmol/L (136-145)
[2018-08-14 08:04] LABS: Phosphorus 3.8 mg/dL (2.3-4.7)
[2018-08-14 08:09] LABS: ALV-art Gradient 58.115 (0-20); Actual Bicarbonate (HCO3a) 27.4 mEq/L (22-28); Analyzer IN Cardio OR; Base Excess (BEa) 2.9 mEq/L (-2.0 to +3.0); CO2 Tension 41.7 mmHg (35.0-45.0); Calcium, Ionized 1.14 mmol/L (1.12-1.30); Carboxyhemoglobin (COHb) 1.1 gm% (0.0-3.0); Hemoglobin (Hb) 12.2 g/dL (14.0-18.0); O2 Tension (PaO2) 89.4 mmHg (> 60.0); Potassium - ABG Lab 3.26 mmol/L (3.70-5.30); Puncture Site LR; pH, Arterial 7.44 (7.35-7.45)
[2018-08-14] MEDS ORDERED: Potassium Chloride 40 MEQ in Premix Bag 1 BAG IVPB SCH (08:15)
[2018-08-14] MEDS ORDERED: PARoxetine 20 MG TAB PO SCH (09:00)
--- NOTE | 2018-08-14 10:32 | RAD ---
PORTABLE CHEST: History: Respiratory distress. Comparison: 08-12-18 FINDINGS: Heart size is enlarged. The pulmonary vascular engorgement appears improved as compared to the prior exam. Post op sternotomy changes are seen. IMPRESSION: Cardiomegaly with improving pulmonary edema. POS: [facility]
--- NOTE | 2018-08-14 11:46 | PRG ---
DATE OF SERVICE: 08/14/2018 SUBJECTIVE: The patient remained very somnolent throughout yesterday throughout the night until early this morning. At 6 o'clock this morning, the patient was still very difficult to arouse. At that time, ordered some additional workup; however, subsequent to that, the patient is fully awake and is now interactive. He says he feels fine and denies any specific concerns. OBJECTIVE: VITAL SIGNS: His temperature is 97.8, pulse 80, respirations 18, O2 sat 94% on 2 L nasal cannula, BP 147/73. GENERAL APPEARANCE: Age appropriate male, in no distress. He is awake and alert. He is conversant. He is oriented to the month, but not the year. HEART: Regular without significant murmur audible. LUNGS: Have some scattered rales worse at the bases. ABDOMEN: Soft, nontender, nondistended. EXTREMITIES: Left lower extremity had a compressive [place] wrap that was removed. There is still some dependent type edema there, but no significant erythema or lesions. LABORATORY DATA: White count 9.7, hemoglobin 11.9, platelets 284. ABG; pH 7.44, pO2 is 89.4, pCO2 41.7. Sodium is 143, potassium 3.3, chloride 109, CO2 25, BUN 21, creatinine 1.07, glucose overnight did drift down to a low of 63 and most recent was 83. CT scan of the head from yesterday reveals no evidence of any acute intracranial process. There is cortical atrophy with chronic small vessel ischemic disease, old lacunar infarcts in the basal ganglia and thalami, old infarction in the right cerebellar hemisphere. Echocardiogram reveals ejection fraction of 20% to 25% with severely depressed overall left ventricular function and there is severe mitral regurgitation present as well. IMPRESSION AND PLAN: 1. Acute congestive heart failure. The patient has some persistent evidence of some pulmonary edema now. We will repeat a chest x-ray. May need some additional diuresis. This was held yesterday as the patient was not taking any p.o.'s at all and was concerned for possibly over diuresing and dehydrating him. Clearly, he has severely depressed ejection fraction with mitral regurgitation. We will consult Cardiology for further medical management. 2. History of coronary artery disease with bypass graft. This likely represents underlying source of his cardiomyopathy, which is likely ischemic. 3. Encephalopathy. The patient's encephalopathy is inexplicable at this point other than the possibility of him not getting the Trintellix as he was previously. The patient is remarkably now fully awake and alert. 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 However, he is much improved. Neurology consult has been ordered and I will continue with that for now just to ensure we are not overlooking anything else that might be culprit in this situation. 4. Diabetes mellitus. The patient had a dose of long acting insulin given yesterday. He was too somnolent to eat or get a swallowing evaluation yesterday. Therefore, he was n.p.o. and his blood sugars did decline. He is on a D5 drip. We will continue to assess his swallow and hopefully would be able to discontinue that today. 5. History of hypertension, on amlodipine and lisinopril. May need to discontinue the amlodipine and beta blockers given his cardiomyopathy. 6. Mild hypokalemia. We will replete in light of his nonsustained ventricular tachycardia. 7. Nonsustained ventricular tachycardia, short runs, likely related to his cardiomyopathy. Again, we will consult Cardiology for further recommendations. 8. Chronic kidney disease, stage 3, stable. 9. History of reflux. Continue Pepcid b.i.d. 10. History of benign prostatic hyperplasia. Continue the Avodart and Flomax. 11. Disposition. I attempted to call the patient's daughter and power of civil rights attorney this morning. I have left her a message. We will try again later. At this point, the patient remains full code. Job ID: [id number]
[2018-08-14] MEDS ORDERED: Potassium Chloride 40 MEQ in Sodium Chloride 0.9% 250 ML 250 ML IVPB SCH (12:00)
[2018-08-14] MEDS: Enoxaparin Sodium 40 MG/0.4 ML SYRINGE SC SCH (12:19)
[2018-08-14] MEDS: Insulin Glargine 20 UNITS in Pre-Filled Syringe 1 EACH SC SCH (12:19)
[2018-08-14] MEDS: PARoxetine 20 MG TAB PO SCH (12:20)
[2018-08-14] MEDS: Dutasteride 0.5 MG CAP PO SCH (12:20)
[2018-08-14] MEDS: Lisinopril 10 MG TAB PO SCH (12:20)
[2018-08-14] MEDS: Famotidine 20 MG TAB PO SCH (13:30)
[2018-08-14] MEDS: Dextrose 5 %-0.45 % NaCl 1,000 ML IV SCH (16:53)
[2018-08-14] MEDS: Carvedilol 3.125 MG TAB PO SCH (17:42)
[2018-08-14] MEDS ORDERED: Famotidine 20 MG TAB PO SCH (21:00)
[2018-08-14] MEDS ORDERED: Tamsulosin HCl 0.4 MG CAP PO SCH (21:00)
--- NOTE | 2018-08-15 08:10 | CON ---
DATE OF CONSULTATION: 08/14/2018 REASON FOR CONSULTATION: Worsening congestive heart failure. HISTORY OF PRESENT ILLNESS: Mr. Gonzalez is an unfortunate 88-year-old gentleman, who was seen and evaluated in the past. He has a previous history of CAD, status post bypass surgery; multiple CVAs, in addition to a renal artery stent placement, who recently presented with CHF type symptoms. Apparently over the last several days, he also has mental status changes. During my visit, he did have slurred speech that appeared to be slightly worse than his baseline. No current complaints were noted. His LVEF of 20% to 25%. He did have severe mitral regurgitation present. PAST MEDICAL HISTORY: Diabetes mellitus, hypertension, hyperlipidemia, multiple strokes, CAD status post bypass surgery, BPH, CHF, tibial fracture, femur fracture, cholecystectomy, anxiety, depression, and dementia. SOCIAL HISTORY: He is currently . No current tobacco or alcohol use. ALLERGIES: NONE. FAMILY HISTORY: Negative for CAD. REVIEW OF SYSTEMS: A 10-point review of systems reviewed negative. PHYSICAL EXAMINATION: GENERAL: Patient is a pleasant male, who is in no acute distress. The patient appears their stated age. There was slurred speech present. This appears slightly worse than his baseline. VITAL SIGNS: Blood pressure 128/60, pulse 83, and temperature 98.1. NEUROLOGIC: The patient is alert and oriented x3 with no focal neurologic deficits. HEENT: Sclerae without icterus. Mouth has moist mucous membranes with normal pallor. NECK: No JVD. Carotid upstroke brisk. No bruits bilaterally. LUNGS: Clear to auscultation with unlabored respirations. BACK: No scoliosis or kyphosis. CARDIAC: Regular rate and rhythm with normal S1 and S2. No S3 or S4 noted. No significant rubs, murmurs, thrills, or gallops noted throughout the precordium. PMI is not displaced. There is no parasternal heave. ABDOMEN: Soft, nontender, nondistended. No peritoneal signs present. No hepatosplenomegaly. No abnormal striae. EXTREMITIES: 2+ femoral and 2+ dorsalis pedis pulses. No cyanosis, clubbing, or edema. SKIN: No gross abnormalities. PERTINENT LABORATORY DATA: Hemoglobin 11.9. Creatinine 1.07. Telemetry monitoring shows nonsustained VT. Echo with Doppler shows LVEF of 20% to 25% with severe mitral regurgitation present, aortic valve sclerosis. IMPRESSION: New onset congestive heart failure. RECOMMENDATIONS: Previous LVEF was 45% to 50% that was in November 2015. Recent LVEF does appear markedly diminished. He also has nonsustained VT. Unfortunately, Mr. Gonzalez has multiple comorbidities. At this point, recommend medical therapy. I did discuss this with his family. He is currently on aspirin carvedilol, and Plavix. We will consider amiodarone therapy. We will start at a low dose. At this point, I do not feel he is a candidate for ICD placement given comorbidities. Otherwise I have no further recommendations. Job ID: [id number]
[2018-08-15] MEDS ORDERED: Potassium Chloride 10 MEQ TAB PO SCH (09:00)
[2018-08-15] MEDS ORDERED: Aspirin 325 MG TAB PO SCH (09:00)
[2018-08-15] MEDS ORDERED: Clopidogrel Bisulfate 75 MG TAB PO SCH (09:00)
[2018-08-15] MEDS: Lisinopril 10 MG TAB PO SCH (09:16)
[2018-08-15] MEDS: PARoxetine 20 MG TAB PO SCH (09:16)
[2018-08-15] MEDS: Carvedilol 3.125 MG TAB PO SCH (09:17)
[2018-08-15] MEDS: Enoxaparin Sodium 40 MG/0.4 ML SYRINGE SC SCH (09:17)
[2018-08-15] MEDS: Dutasteride 0.5 MG CAP PO SCH (09:17)
[2018-08-15] MEDS: Insulin Glargine 20 UNITS in Pre-Filled Syringe 1 EACH SC SCH (09:45)
[2018-08-15] MEDS ORDERED: Amiodarone 200 MG TAB PO SCH (11:00)
[2018-08-15] MEDS: HumaLOG 300 UNITS/3 ML VIAL SC PRN (11:35)
[2018-08-15 11:56] VITALS: BP 136/63; TEMP 98.3
--- NOTE | 2018-08-15 13:39 | PDOC.CTH ---
Cardiology Progress Note - Subjective No complaints. No overnight events per nurse. Family not available. - Objective Vital Signs Temp Pulse Resp BP Pulse Ox 08/15/18 12:40 79 18 92 L 08/15/18 10:38 98.3 F 81 16 136/63 97 08/15/18 07:42 98.1 F 94 24 H 159/71 H 95 08/15/18 06:34 76 16 100 08/15/18 05:05 72 20 132/94 H 97 Weight 185 lb 4.8 oz 08/14/18 08/15/18 08/16/18 06:59 06:59 06:59 Intake Total 414 1110 Output Total 1150 Balance 414 -40 - Physical Examination General/Neuro: other: (Alert and Awake) Lungs: CTA Heart: RRR Abdomen: NT/ND Extremities: + edema B - Telemetry Telemetry Rhythm: SR - Labs Result Diagrams: 08/14/18 06:08 08/14/18 06:08 Troponin/CKMB CK-MB (CK-2) 1.3 ng/mL (0-6.6) 08/12/18 09:14 Troponin I 0.029 ng/mL (< 0.028) H 08/12/18 15:09 - Assessment/Plan 1. Acute on chronic systolic CHF 2. CAD 3. History of multiple TIA/CVAs Continue diuresis. Conservative therapy only.
--- NOTE | 2018-08-17 18:24 | EKG ---
Test Reason : Blood Pressure : / mmHG Vent. Rate : 099 BPM Atrial Rate : 099 BPM P-R Int : 204 ms QRS Dur : 108 ms QT Int : 394 ms P-R-T Axes : 101 060 203 degrees QTc Int : 505 ms Sinus rhythm with sinus arrhythmia with occasional atrial-paced complexes Cannot rule out Anterior infarct , age undetermined Prolonged QT Abnormal ECG Confirmed by MORRIS TRUJILLO ([id number]), editor managing director CALDERON POWELL ([id number]) on 08/17/2018 6:23:19 PM Referred By: Confirmed By:MORRIS TRUJILLO
== END 2018-08-15 15:06 | disposition home health service (06) | DRG 291 ==
LOC: ERS 08:55 → ERHOLD 10:40 → INTOOBSV 10:40 → 2SW 19:07 → OBSVTOIN 08-13 17:46
PROVIDERS: ADMIT Internal Medicine; ATTEND Internal Medicine
DX: I13.0 Hypertensive heart and chronic kidney disease with heart failure and stage 1 through stage 4 chronic kidney disease, or unspecified chronic kidney disease (principal); I50.33 Acute on chronic diastolic (congestive) heart failure; G93.40 Encephalopathy, unspecified; N18.3 Chronic kidney disease, stage 3 (moderate); Z74.01 Bed confinement status; F03.90 Unspecified dementia, unspecified severity, without behavioral disturbance, psychotic disturbance, mood disturbance, and anxiety; E11.22 Type 2 diabetes mellitus with diabetic chronic kidney disease; Z86.73 Personal history of transient ischemic attack (TIA), and cerebral infarction without residual deficits; I25.10 Atherosclerotic heart disease of native coronary artery without angina pectoris; Z95.1 Presence of aortocoronary bypass graft; N40.0 Benign prostatic hyperplasia without lower urinary tract symptoms; E78.5 Hyperlipidemia, unspecified; R53.81 Other malaise; Z95.5 Presence of coronary angioplasty implant and graft; F41.9 Anxiety disorder, unspecified; F32.9 Major depressive disorder, single episode, unspecified; Z79.899 Other long term (current) drug therapy; Z79.02 Long term (current) use of antithrombotics/antiplatelets; Z79.4 Long term (current) use of insulin; Z79.82 Long term (current) use of aspirin; K21.9 Gastro-esophageal reflux disease without esophagitis
CPT/HCPCS: 36415; 36416; 51701; 70450; 71045; 80048; 80053; 81003; 82553; 82805; 83605; 83735; 83880; 84100; 84443; 84484; 84550; 85025; 87040; 90471; 90662; 93005; 93306; 94640; 96374; 96376; G0008; G8978-GP-CM; G8979-GP-CL; G8987-GO-CM; G8988-GO-CL; G8996-GN-CJ; G8996-GN-CK; G8997-GN-CI; J1200; J1650; J1940; J3480; J7050; J7611; J7620

== ENCOUNTER 2018-09-11 16:27 | Inpatient (IN) | payer MEDICARE ==
[2018-09-11 17:28] LABS: #Eosinphils 0.1 thou/uL (0.0-0.7); #Lymphocytes 2.1 thou/uL (1.20-3.40); #Monocytes 0.5 thou/uL (0.11-0.59); #Neutrophils 4.6 thou/uL (1.40-6.50); %Basophils 0.5 % (0.0-1.0); %Lymphocytes 27.8 % (21.0-51.0); %Monocytes 7.3 % (0.0-10.0); %Neutrophils 62.5 % (42.0-75.0); Hemoglobin 12.5 g/dL (14.0-18.0); Mean Corpuscular HGB CONC 32.5 g/dL (32.0-36.0); Mean Corpuscular Hemoglobin 30.5 pg (27.0-31.0); Mean Corpuscular Volume 93.9 fL (78.0-98.0); Mean Platelet Volume 10.1 fL (7.4-10.4); Platelet Count 176 thou/uL (130-400); RBC Distribution Width 13.7 % (11.5-14.5); Red Blood Cell (RBC) Count 4.09 mill/uL (4.70-6.10); White Blood Cell (WBC) Count 7.4 thou/uL (4.8-10.8)
[2018-09-11 17:47] LABS: ALT (SGPT) 8 U/L (8-55); AST (SGOT) 13 U/L (5-34); Albumin 3.3 g/dL (3.4-4.8); Alkaline Phosphatase 139 U/L (40-150); Anion Gap 12 mmol/L (10-20); BUN (Urea Nitrogen) 19 mg/dL (8.4-25.7); Bilirubin, Total 0.6 mg/dL (0.2-1.2); Calc. Creatinine Clearance 0 mL/min (70-130); Calcium 8.9 mg/dL (7.8-10.44); Carbon Dioxide 29 mmol/L (23-31); Chloride 101 mmol/L (98-107); Estimated GFR-MDRD 50; Globulin 2.7 g/dL (2.4-3.5); Glucose 423 mg/dL (83-110); Potassium 3.7 mmol/L (3.5-5.1); Sodium 138 mmol/L (136-145)
--- NOTE | 2018-09-11 18:35 | RAD ---
SINGLE VIEW OF THE CHEST: 09/11/18 COMPARISON: 09/05/18. HISTORY: Dyspnea. FINDINGS: Single view of the chest shows an enlarged cardiomediastinal silhouette. The patient is status post s ternotomy. There is no evidence of consolidation, mass or pleural effusion. IMPRESSION: Cardiomegaly without evidence of acute cardiopulmonary disease. POS: [facility]
[2018-09-11 19:10] LABS: Bilirubin Negative (Negative); Blood, Urine Negative (Negative); Clarity CLEAR (Clear); Glucose, Urine (Dipstick) 500 mg/dL (Negative); Leukocyte Negative (Negative); Nitrite Negative (Negative); Protein, Urine (Dipstick) Trace mg/dL (Neg-Trace); Specific Gravity, Urine 1.014 (1.002-1.036); Urobilinogen 0.2 mg/dL (0.2-1.0); pH, Urine 5.5 (5.0-9.0)
--- NOTE | 2018-09-11 19:56 | CT ---
CT OF THE BRAIN WITHOUT CONTRAST: 09/11/18 COMPARISON: 08/13/18 HISTORY: Generalized weakness for the past two days and altered mental status. TECHNIQUE: Multiple contiguous axial images were obtained in a CT of the brain without contrast. FINDINGS: Cerebral artery is seen. There is a few scattered hypodensities in the subcortical and periventricula r white matter, likely secondary to small vessel ischemic disease. No new large confluent infarctions are seen. There is no evidence of hydrocephalus, intracranial hemorrhages, or extra-axial fluid collection. The calvarium and overlying soft tissues are unremarkable. The visualized paranasal sinuses and mast oid air cells are well aerated. IMPRESSION: No evidence of acute intracranial abnormality. POS: [facility]
[2018-09-11] MEDS ORDERED: Aspirin 325 MG TAB ONE (20:32)
[2018-09-11] MEDS ORDERED: Furosemide 40 MG/4 ML VIAL ONE (20:32)
[2018-09-11 22:02] LABS: Troponin I 0.041 ng/mL (< 0.028)
[2018-09-11] MEDS ORDERED: Calcium Carbonate 500 MG ChewTAB PO PRN (22:52)
[2018-09-11] MEDS ORDERED: HumaLOG 300 UNITS/3 ML VIAL SC PRN ×2 (22:52)
[2018-09-11] MEDS ORDERED: Bisacodyl 10 MG SUPP PR PRN (22:52)
[2018-09-11] MEDS ORDERED: Bisacodyl 5 MG TAB PO PRN (22:52)
[2018-09-11] MEDS ORDERED: Acetaminophen 650 MG Suppository PR PRN (22:52)
[2018-09-11] MEDS ORDERED: Dextrose 5% in Water 1,000 ML IV PRN (22:52)
[2018-09-11] MEDS ORDERED: Zolpidem Tartrate 5 MG TAB PO PRN (22:52)
[2018-09-11] MEDS ORDERED: Dextrose 50% Abboject 50 ML SYRINGE SLOW IVP PRN (22:52)
[2018-09-11] MEDS ORDERED: Senokot S 8.6-50 MG TAB PO PRN (22:52)
[2018-09-11] MEDS ORDERED: Acetaminophen 325 MG TAB PO PRN (22:52)
[2018-09-11] MEDS ORDERED: Insulin Regular 300 UNITS/3 ML VIAL ONE (23:01)
[2018-09-11] MEDS ORDERED: [UNRECOGNIZED DRUG - REMARK] IVPB PRN (23:21)
[2018-09-11] MEDS ORDERED: Ondansetron ODT 4 MG TAB SL PRN (23:51)
[2018-09-11] MEDS ORDERED: Ondansetron PF 4 MG/2 ML Vial IVP PRN (23:51)
[2018-09-11] MEDS ORDERED: cefTRIAXone\\ROCEPHIN 1 GM in Sodium Chloride 0.9% 100 ML IVPB SCH (23:59)
[2018-09-12 00:43] LABS: Troponin I 0.045 ng/mL (< 0.028)
[2018-09-12] MEDS ORDERED: Azithromycin 500 MG in Sodium Chloride 0.9% 250 ML 250 ML IVPB SCH (01:00)
[2018-09-12 02:15] VITALS: BMI 26.6
[2018-09-12 05:16] LABS: #Eosinphils 0.3 thou/uL (0.0-0.7); #Lymphocytes 2.2 thou/uL (1.20-3.40); #Monocytes 0.6 thou/uL (0.11-0.59); #Neutrophils 3.4 thou/uL (1.40-6.50); %Basophils 0.7 % (0.0-1.0); %Eosinophils 4.2 % (0.0-10.0); %Lymphocytes 33.2 % (21.0-51.0); %Monocytes 9.4 % (0.0-10.0); %Neutrophils 52.4 % (42.0-75.0); Hemoglobin 11.7 g/dL (14.0-18.0); Mean Corpuscular HGB CONC 32.6 g/dL (32.0-36.0); Mean Corpuscular Hemoglobin 30.5 pg (27.0-31.0); Mean Corpuscular Volume 93.5 fL (78.0-98.0); Mean Platelet Volume 10.1 fL (7.4-10.4); Platelet Count 165 thou/uL (130-400); RBC Distribution Width 13.7 % (11.5-14.5); Red Blood Cell (RBC) Count 3.84 mill/uL (4.70-6.10); White Blood Cell (WBC) Count 6.6 thou/uL (4.8-10.8)
[2018-09-12 05:32] LABS: Anion Gap 11 mmol/L (10-20); BUN (Urea Nitrogen) 17 mg/dL (8.4-25.7); BUN/Creatinine Ratio 14.29; Calc. Creatinine Clearance 47 mL/min (70-130); Calcium 8.8 mg/dL (7.8-10.44); Carbon Dioxide 32 mmol/L (23-31); Chloride 106 mmol/L (98-107); Estimated GFR-MDRD 58; Glucose 102 mg/dL (83-110); Phosphorus 3.1 mg/dL (2.3-4.7); Potassium 3.3 mmol/L (3.5-5.1); Sodium 146 mmol/L (136-145)
[2018-09-12] MEDS: Furosemide 20 MG/2 ML VIAL SLOW IVP SCH ×2 (06:38→14:48)
--- NOTE | 2018-09-12 08:24 | CT ---
PRELIMINARY REPORT/[facility]/EMERGENT[facility] AFTER-HOURS PROCEDURE CT Chest With Contrast EXAM DATE/TIME: 09/12/2018 12:45 AM CLINICAL HISTORY: 88 years old, male; Pain; Pleuordynia; Patient HX: Chest pain. Er7; M88 C/O generalized weakness for the past 2 weeks per family. home health caregiver called [facility] today after o2 sats was at 70% and he was gas ping for air. PT has HX of chf. PT is typically. A&ox2 per family and sleeps a lot; Family says that PT seems more confused the past couple of days. TECHNIQUE: Axial computed tomography images of the chest with intravenous contrast. Coronal reformatted images were created and reviewed. COMPARISON: No relevant prior studies available. FINDINGS: Lungs: Scattered bilateral ground glass airspace consolidations consistent with infiltrates vs edema. Pleural space: No pneumothorax. Small to moderate bilateral effusions. Heart: Moderate cardiomegaly. There are atheromatous calcifications of the aorta and coronary vascula ture. Aorta: No aortic aneurysm. Lymph nodes: Unremarkable. No enlarged lymph nodes. Bones/joints: Chronic degenerative spinal changes without acute fracture or dislocation. There are me edward sternotomy changes. Soft tissues: Unremarkable. Upper abdomen: Cholelithiasis without other findings of cholecystitis. Questionable splenic lesions vs heterogeneous enhancement given arterial phase bolus. IMPRESSION: Cardiomegaly with pleural effusions. Scattered bilateral ground glass airspace consolidations consistent with infiltrates vs edema. Atheromatous calcifications of the aorta and coronary vasculature. Thank you for allowing us to participate in the care of your patient. Dictated and Authenticated by: Jennie Gutiérrez MD 09/12/2018 2:27 AM Central Time ([place] & [place]) FINAL REPORT CT CHEST WITH CONTRAST: Date: 09/11/18 HISTORY: Weakness. Pain. CHF. COMPARISON: Chest radiograph from prior day. FINDINGS/IMPRESSION: Findings and impression are concordant with the preliminary report by Michael. Findings suggesting decom pensated congestive heart failure. There is also a compression fracture of near complete height loss of the L1 vertebra. POS: [facility]
--- NOTE | 2018-09-12 08:38 | HP ---
CHIEF COMPLAINT: Generalized weakness and forgetfulness. HISTORY OF PRESENT ILLNESS: This is an 88-year-old male with a chief complaint of generalized weakness for the past two weeks. Per family, the patient has not been at his baseline. The patient has been desaturating in the 70s, and the patient is also having some confusion. Per the , the patient was found gasping for air , and the patient was having severe shortness of breath. Of note, the patient was recently admitted in our hospital on 08/13/2018, for CHF. At that time, the patient had an echo done, which showed the patient's ejection fraction was between 20% to 25% with severe mitral regurgitation. The patient was diuresed during that time, and parachute manufacturing supervisor saw the patient, and the patient was started on amiodarone low dose. REVIEW OF SYSTEMS: Cannot be obtained due to the patient's altered mentation. PAST MEDICAL HISTORY: Diabetes, type 2; hypertension; dyslipidemia; history of stroke; coronary artery disease; chronic congestive heart failure; benign enlargement of the prostate; and chronic physical deconditioning. PAST SURGICAL HISTORY: Left tibia fracture repair, CABG, stent placement, left hip and femur repair, cholecystectomy, left renal artery stenosis and stenting, and lens implant in both eyes. PAST PSYCHIATRIC HISTORY: Anxiety, depression, and dementia. SOCIAL HISTORY: The patient is , lives at home with and family. The patient does not smoke, does not drink, and does not do any illicit drugs. ALLERGIES: NO KNOWN DRUG ALLERGIES. FAMILY HISTORY: The patient's father had stomach cancer. CURRENT MEDICATIONS: The patient takes: 1. Potassium chloride. 2. Amlodipine 10 mg. 3. Plavix 75 mg. 4. Lasix 80 mg daily. 5. Paxil. 6. Lisinopril. 7. Aspirin. 8. Avodart. 9. Insulin. The patient was recently started on amiodarone. PHYSICAL EXAMINATION: VITAL SIGNS: The patient's blood pressure 125/84, heart rate of 72, respiratory rate of 20, temperature of 98.4, O2 saturation at 96 on room air. GENERAL: The patient is alert and oriented x0. The patient does not appear to be in any distress; however, the patient is very somnolent. HEENT: Normocephalic and atraumatic. Pupils are equally round and reactive to light. Extraocular movements are intact. No scleral icterus. Mucous membranes are very dry. NECK: Supple. Trachea is midline. No JVD is noted. LUNGS: Rales at the posterior lung simmons bilaterally. CARDIAC: Positive S1 and S2. Regular rate and rhythm. No murmurs, no gallops , no rubs appreciated. ABDOMEN: Soft, nontender, and nondistended. Positive bowel sounds in all quadrants. No peritoneal signs. EXTREMITIES: The patient has some weakness of the upper extremities, and the patient has weakness in the lower extremities. The patient is not following commands. The patient has 2+ pitting edema at the left lower extremity compared to the right. The patient's right lower extremity has 1+ edema. The patient does have a scar, that is seen around the thigh and the lower extremity. NEUROLOGIC: Cranial nerves 2 through 12 grossly intact. No neurologic deficits appreciated. SKIN: Warm, dry, and intact. PSYCHIATRIC: Alert and oriented x0. IMAGING DATA: EKG shows first-degree AV block with a rate of 70 with some premature ventricular complexes. CT of the head, negative for any ischemic intracranial abnormalities. Chest film shows some infiltrates and possible underlying pneumonia in the right lower lobe. LABORATORY DATA: WBC 7.4, hemoglobin is 12.5, hematocrit is 38.4. Sodium is 138, potassium is 3.7, chloride is 101, carbon dioxide of 29, anion gap of 12, BUN is 19, creatinine is 1.34, glucose is 423. Troponin is 0.046. BNP is 972.9. Albumin is 3.3. ASSESSMENT AND PLAN: This is an 88-year-old male, being admitted for: 1. Acute on chronic systolic congestive heart failure exacerbation. The patient 's echo results showed the patient's ejection fraction is between 20% to 25%, which was seen on last admission. We will continue the patient on Lasix IV, and we will continue the patient on his current medications. We will consult Cardiology regarding further treatments. We will continue to monitor the patient. 2. Coronary artery disease, status post coronary artery bypass grafting and stents. At this point, we will continue the patient on his home medications. Cardiology has been consulted. We will follow up with Cardiology regarding any further recommendations. 3. Elevated troponins, likely due to the patient's acute congestive heart failure exacerbation. At this point, the patient's troponins are mildly elevated. We will trend the patient's troponins, and we will continue the patient on current management. 4. Acute encephalopathy, likely due to possible underlying pneumonia. The patient's chest x-ray shows some infiltrates and some haziness in the right lower lobe, likely due to aspiration. At this point, we will start the patient on antibiotics. We are going to get a CT scan of the chest to rule out any underlying pathology. We will continue the patient on current management at this time. 5. Benign prostatic hypertrophy. We will get bladder scan. We will continue the patient on Flomax and Avodart, and we will continue to monitor the patient closely. 6. Anxiety and depression. We will continue the patient on his antidepressants , and we will monitor the patient closely. 7. History of hypertension. We will continue the patient on current medications , and we will monitor the patient's blood pressure. 8. Diabetes mellitus, type 2. We will continue the patient on insulin sliding scale. We will monitor the patient's blood glucose at this time. 9. Deep venous thrombosis and gastrointestinal prophylaxis. Job ID: [id number] [facility]
[2018-09-12] MEDS ORDERED: Vortioxetine Hydrobromide [Trintellix] 5 MG PO SCH (09:00)
[2018-09-12] MEDS ORDERED: PARoxetine 20 MG TAB PO SCH (09:00)
[2018-09-12] MEDS ORDERED: Famotidine/PF 20 mg/2ml Vial SLOW IVP SCH (09:00)
[2018-09-12] MEDS: Dutasteride 0.5 MG CAP PO SCH (11:22)
[2018-09-12] MEDS: Carvedilol 3.125 MG TAB PO SCH ×2 (11:22→16:01)
[2018-09-12] MEDS: Clopidogrel Bisulfate 75 MG TAB PO SCH (11:22)
[2018-09-12] MEDS: Famotidine 20 MG TAB PO SCH (11:22)
[2018-09-12] MEDS: Aspirin 325 mg Enteric Coated Tablet PO SCH (11:22)
--- NOTE | 2018-09-12 13:14 | PDOC.PN ---
- Subjective Encounter Start Date: 09/12/18 (f/u hypoxia) Encounter Start Time: 13:12 Subjective: Caregiver thinks the breathing is a little better today - states the pt -: has difficulty with transferring/exertion. Pt reports he had some stomach -: discomfort earlier that resolved with eating - Objective Vital Signs & Weight: Vital Signs (12 hours) Temp Pulse Resp BP Pulse Ox 09/12/18 08:00 97.8 F 65 16 176/68 H 97 09/12/18 04:35 95 09/12/18 04:00 96.8 F L 73 14 125/60 95 09/12/18 02:57 96 Weight Weight 176 lb 3.2 oz I&O: 09/11/18 09/12/18 09/13/18 06:59 06:59 06:59 Intake Total 400 Output Total 700 Balance -300 Result Diagrams: 09/12/18 04:33 09/12/18 04:33 Additional Labs: Accuchecks 09/12/18 09/12/18 09/11/18 11:30 05:46 22:12 POC Glucose 94 67 L 280 H EKG Reviewed by me: Yes (sinus 50-60's, 1st deg block) Phys Exam - Physical Examination Constitutional: NAD Respiratory: no wheezing, no rales, no rhonchi, clear to auscultation bilateral Cardiovascular: RRR, no significant murmur Gastrointestinal: soft, non-tender, no distention, positive bowel sounds Musculoskeletal: edema present non-pitting edema on left leg (caregiver reports this is due to hx of vein resection of the left leg) Neurological: non-focal, moves all 4 limbs Dx/Plan (1) Systolic heart failure Code(s): I50.20 - UNSPECIFIED SYSTOLIC (CONGESTIVE) HEART FAILURE Status: Chronic Qualifiers: Heart failure chronicity: chronic Qualified Code(s): I50.22 - Chronic systolic (congestive) heart failure (2) Compression fracture Code(s): PSZ5299 - Status: Chronic (3) Diabetes mellitus Code(s): E11.9 - TYPE 2 DIABETES MELLITUS WITHOUT COMPLICATIONS Status: Chronic Qualifiers: Diabetes mellitus type: type 2 Diabetes mellitus group home insulin use: with group home use (4) CAD (coronary artery disease) Code(s): I25.10 - ATHSCL HEART DISEASE OF [place] CORONARY ARTERY W/O ANG PCTRS Status: Chronic (5) Dyslipidemia Code(s): E78.5 - HYPERLIPIDEMIA, UNSPECIFIED Status: Chronic (6) H/O: CVA (cerebrovascular accident) Code(s): Z86.73 - PRSNL HX OF TIA (TIA), AND CEREB INFRC W/O RESID DEFICITS Status: Chronic - Plan * Systolic HF - on diuresis with IV lasix, cardiology consulted * Amiodarone restarted -talked with daughter Desirae and this medication was started in hosp last month but not continued on discharge meds. Pt was reloaded at home starting about a week ago - however it was not continued here nor listed on H&P. will restart it at [address] Rea know * Doubt pneumonia given normal WBC, absence of coughing - will d/c abx * reviewed meds with Desirae and paxil is 20 mg daily - change this here * restart home meds * Will request social work check and see if Pall Care is available with [facility] - the goal is to keep pt comfortable and at home * dementia - per caregiver this waxes/wanes and has been more noticeable in the past 6 months and tia's noted. * Compression fx - daughter thinks this may not be new. Pt recently underwent kyphoplasty of T12, and has another fx that was not amenable to tx. * * dvt prophy - scd's * gi prophy - not indicated * code status - reviewed with Desirae/daughter and pt desires full code. Desirae is the surrogate decision maker.
[2018-09-12] MEDS ORDERED: Dextrose 50% Abboject 50 ML SYRINGE SLOW IVP PRN (13:29)
[2018-09-12] MEDS ORDERED: Dextrose 5% in Water 1,000 ML IV PRN (13:29)
[2018-09-12] MEDS ORDERED: HumaLOG 300 UNITS/3 ML VIAL SC PRN (13:29)
--- NOTE | 2018-09-12 19:06 | CON ---
DATE OF CONSULTATION: REASON FOR CONSULTATION: Weakness. HISTORY OF PRESENT ILLNESS: Mr. Gonzalez is a pleasant 88-year-old gentleman, whom I have seen him in the past. He has a brief history of underlying coronary artery disease, previous stroke, renal artery stenosis, CAD status post bypass surgery, congestive heart failure. He re-presented with weakness. His daughter states he had difficulty getting out of a chair. He had several days where his ambulation was limited. He has had multiple hospitalizations for multiple complaints including TIA, tib-fib fracture in addition to CHF. Unfortunately, his health continues to decline. PAST MEDICAL HISTORY: Multiple strokes; previous renal artery stenosis, status post stent placement; CAD, status post bypass surgery; congestive heart failure; cardiomyopathy; COPD; sarcoidosis; diabetes mellitus. CURRENT HOME MEDICATIONS: Include, 1. Amiodarone. 2. Paroxetine. 3. Loratadine. 4. Tamsulosin. 5. Carvedilol. 6. Atorvastatin. 7. Omeprazole. 8. Avodart. 9. Aspirin. 10. Zestril. 11. Lasix. 12. Plavix. 13. Klor-Con. SOCIAL HISTORY: No current tobacco or alcohol use. REVIEW OF SYSTEMS: Ten-point review of systems is reviewed and as above, negative. PHYSICAL EXAMINATION: VITAL SIGNS: Blood pressure 176/68, pulse 55, temperature 97.8. GENERAL: The patient is a pleasant 88-year-old who is in no acute distress. The patient appears their stated age. NEUROLOGIC: The patient is alert and oriented x3 with no focal neurologic deficits. HEENT: Sclerae without icterus. Mouth has moist mucous membranes with normal pallor. NECK: No JVD. Carotid upstroke brisk. No bruits bilaterally. LUNGS: Clear to auscultation with unlabored respirations. BACK: No scoliosis or kyphosis. CARDIAC: Regular rate and rhythm with normal S1 and S2. No S3 or S4 noted. No significant rubs, murmurs, thrills, or gallops noted throughout the precordium. PMI is not displaced. There is no parasternal heave. ABDOMEN: Soft, nontender, nondistended. No peritoneal signs present. No hepatosplenomegaly. No abnormal striae. EXTREMITIES: 2+ femoral and 2+ dorsalis pedis pulses. No cyanosis, clubbing, or edema. SKIN: No gross abnormalities. PERTINENT LABORATORY DATA: Hemoglobin 11.7, creatinine 1.9. Troponin 0.045. Albumin 3.0. DIAGNOSTIC DATA: Last echo-Doppler dated 08/13/2018, with LVEF 20% to 25% and severe mitral regurgitation. IMPRESSION: 1. Weakness. 2. Cwevy-jy-hjivcon systolic heart failure. 3. Coronary artery disease. 4. Status post bypass surgery. RECOMMENDATIONS: I had a discussion with the Carlos family. He has had multiple hospitalizations recently and continues to have increased weakness. At this point, we will treat symptomatically. Would continue Lasix as prescribed. He is on IV Lasix in addition to Plavix, aspirin, and beta-chencho therapy. I did talk to the family and Milo Gonzalez about limited options based on the comorbidities. Also I discussed with Palliative Care versus Hospice if this continues to be a trend. They are in agreement. Job ID: [id number]
[2018-09-12] MEDS ORDERED: Tamsulosin HCl 0.4 MG CAP PO SCH (21:00)
[2018-09-12] MEDS ORDERED: Atorvastatin Calcium 40 MG TAB PO SCH (21:00)
[2018-09-12] MEDS: Amiodarone 200 MG TAB PO SCH (21:21)
[2018-09-13 05:36] LABS: #Basophils 0.1 thou/uL (0.0-0.2); #Eosinphils 0.3 thou/uL (0.0-0.7); #Lymphocytes 1.7 thou/uL (1.20-3.40); #Monocytes 0.6 thou/uL (0.11-0.59); #Neutrophils 5.7 thou/uL (1.40-6.50); %Basophils 0.6 % (0.0-1.0); %Eosinophils 3.7 % (0.0-10.0); %Lymphocytes 20.6 % (21.0-51.0); %Monocytes 7.4 % (0.0-10.0); %Neutrophils 67.8 % (42.0-75.0); Hemoglobin 12.1 g/dL (14.0-18.0); Mean Corpuscular HGB CONC 32.6 g/dL (32.0-36.0); Mean Corpuscular Hemoglobin 30.4 pg (27.0-31.0); Mean Corpuscular Volume 93.2 fL (78.0-98.0); Mean Platelet Volume 9.8 fL (7.4-10.4); Platelet Count 179 thou/uL (130-400); RBC Distribution Width 13.7 % (11.5-14.5); Red Blood Cell (RBC) Count 3.98 mill/uL (4.70-6.10); White Blood Cell (WBC) Count 8.3 thou/uL (4.8-10.8)
[2018-09-13 05:56] LABS: Anion Gap 11 mmol/L (10-20); BUN (Urea Nitrogen) 20 mg/dL (8.4-25.7); Calc. Creatinine Clearance 50 mL/min (70-130); Calcium 8.9 mg/dL (7.8-10.44); Carbon Dioxide 30 mmol/L (23-31); Chloride 106 mmol/L (98-107); Estimated GFR-MDRD 62; Glucose 221 mg/dL (83-110); Potassium 3.7 mmol/L (3.5-5.1); Sodium 143 mmol/L (136-145)
--- NOTE | 2018-09-13 06:19 | PDOC.CTH ---
Cardiology Progress Note - Subjective No complaints. States he is breathing better - Objective Vital Signs Temp Pulse Resp BP Pulse Ox 09/13/18 02:40 98.6 F 79 14 168/74 H 95 09/13/18 00:00 20 09/12/18 20:00 98.1 F 78 20 154/72 H 97 Weight 174 lb 8 oz 09/11/18 09/12/18 09/13/18 06:59 06:59 06:59 Intake Total 400 Output Total 700 Balance -300 - Physical Examination General/Neuro: NAD Neck: carotid US brisk, no JVD present Lungs: CTA, unlabored respirations Heart: PMI normal Abdomen: no HSM, NT/ND, soft Extremities: + femoral B - Labs Result Diagrams: 09/13/18 04:59 09/13/18 04:59 Troponin/CKMB CK-MB (CK-2) 1.0 ng/mL (0-6.6) 09/11/18 17:04 Troponin I 0.045 ng/mL (< 0.028) H 09/12/18 00:00 - Assessment/Plan 1. Weakness 2. Acute on chronic systloic HF 3. Afib 4. Dementia 5. HTN 6. Hypoalbuminemia Options limited as I discussed with family yesterday Plan is to treat symptomatically and avoid repeat hopsitalizations Palliative care has been consulted. Decrease amiodarone to 200md QAM Resume previous lasix
[2018-09-13] MEDS: Furosemide 20 MG/2 ML VIAL SLOW IVP SCH ×2 (06:35→13:40)
[2018-09-13 08:35] VITALS: TEMP 98.2
[2018-09-13] MEDS ORDERED: Potassium Chloride 20 MEQ TAB PO SCH (09:00)
[2018-09-13] MEDS ORDERED: PARoxetine 20 MG TAB PO SCH (09:00)
[2018-09-13] MEDS ORDERED: Lisinopril 10 MG TAB PO SCH (09:00)
[2018-09-13] MEDS: Clopidogrel Bisulfate 75 MG TAB PO SCH (10:15)
[2018-09-13] MEDS: Carvedilol 3.125 MG TAB PO SCH ×2 (10:15→17:52)
[2018-09-13] MEDS: Dutasteride 0.5 MG CAP PO SCH (10:15)
[2018-09-13] MEDS: Aspirin 325 mg Enteric Coated Tablet PO SCH (10:16)
[2018-09-13] MEDS: Amiodarone 200 MG TAB PO SCH (10:16)
[2018-09-13] MEDS: Famotidine 20 MG TAB PO SCH (10:16)
[2018-09-13] MEDS ORDERED: Insulin Glargine 10 UNITS in Pre-Filled Syringe 1 EACH SC SCH (14:15)
--- NOTE | 2018-09-13 15:32 | DIS ---
DATE OF ADMISSION: 09/11/2018 DATE OF DISCHARGE: 09/13/2018 CONSULTANTS: Dr. Rea of Cardiology. MEDICATIONS: Medications are reconciled at discharge and are as follows: Medication change: Amiodarone was decreased to 200 mg once a day. Medications to continue: 1. Aspirin 325 mg once a day. 2. Atorvastatin 40 mg once a day. 3. Carvedilol 3.125 mg twice a day. 4. Plavix 75 mg once a day. 5. Avodart 0.5 mg a day. 6. Lasix 80 mg once a day. 7. Tresiba 25 units injected daily. 8. Lisinopril 10 mg once a day. 9. Claritin 10 mg once a day as needed. 10. Omeprazole 40 mg once a day as needed. 11. Paxil 20 mg once a day. 12. Potassium chloride 20 mEq once a day. 13. Tamsulosin 0.4 mg at night. DISCHARGE DIAGNOSES: 1. Acute on chronic systolic congestive heart failure with low ejection fraction estimated between 20% and 25% in 2017. 2. Compression fracture of the L1 vertebra with near complete height loss. SECONDARY DIAGNOSES: 1. Coronary artery disease. 2. Dementia. 3. Benign prostatic hypertrophy. 4. Anxiety and depression. 5. History of hypertension. 6. Type 2 diabetes. 7. Anemia, chronic, normocytic. HISTORY OF PRESENT ILLNESS: Mr. Gonzalez is an 88-year-old male with the above medical problems, who presented to the emergency room due to hypoxia with oxygen levels in the 70%, worsening confusion, and gasping for air. In the emergency room, the patient was found to have acute on chronic systolic heart failure and was admitted. HOSPITAL COURSE: The patient was diuresed gently with IV Lasix and has responded well. He was evaluated by Cardiology with recommendation for IV diuresis. In discussion with the patient's daughter, Desirae and Dr. Rea, the goal is for the patient to be managed at home. To accommodate this, Palliative Care has been requested through the patient's current [facility]. The goal is for the patient to remain at home with management of symptoms. The patient is a full code, requested this to be discussed with the family as well in going forward. The patient does meet criteria for discharge to home. His oxygen saturation levels are normal on room air, he is alert and responsive and ready to go home. His daughter is aware of the low ejection fraction and what is this means, the potential for decompensation with a change in fluid or volume status, and seek care precautions. The patient's blood sugars were low initially with this hospitalization, however , over the past 18 hours, they have risen to 200s and 300s. Because of this, the patient will receive 10 units of Lantus here, and the family has short-acting insulin to use with meal time. They will resume his normal Tresiba tomorrow per their normal routine. The only other change to medication is that the amiodarone is being changed to once daily rather than twice daily. The patient does have an appointment to follow up with Dr. Rea, to keep that as long as he is able, otherwise to go through Palliative Care for symptom management. The patient had a CT scan which shows a compression fracture of the L1 vertebra. I discussed this with his daughter who reports he had kyphoplasty for a fracture and another fracture was identified but not treatable. PHYSICAL EXAMINATION ON DAY OF DISCHARGE: VITAL SIGNS: Blood pressure 172/80 prior to medication, temperature 98.2, pulse 84, respirations 16, saturations 95% on room air. GENERAL: Awake, alert, responsive, in no apparent distress. LUNGS: Clear to auscultation bilaterally. No audible wheezing, rhonchi, or rales. HEART: Normal S1 and S2. No significant murmur. ABDOMEN: Soft. Present positive bowel sounds. MIGUEL FINDINGS AND TEST RESULTS: Renal panel today; 143, 3.7, 106, 30, 20, 1.12, 221. Troponins here 0.046, 0.041, 0.045. TSH 2.18. LFTs on admission were normal. Urinalysis present glucose. CBC; 8.3, 12.1, 37.1, 179. OTHER MIGUEL FINDINGS: Chest CT on 09/11, which shows decompensated congestive heart failure, compression fracture with near complete loss of the L1 vertebra. Brain CT on 09/11, no evidence of an acute intracranial abnormality. Chest x-ray on 09/11, cardiomegaly without evidence of an acute cardiopulmonary process. DIET: Heart healthy fluid restricted as previously instructed by Dr. Rea , and carbohydrate consistent. ACTIVITY: As tolerated with physical therapy, occupational therapy through home health. DISCHARGE DISPOSITION: Home with [facility] and the request for Palliative Care. I reviewed the plan of care with the patient's daughter, Desirae by phone including the incidental finding of the L1 vertebral fracture which she thinks that this was previously diagnosed, the follow instructions, the inclusion of palliative care with the patient's care and goal of remaining at home, and seek care precautions. No questions or further needs. TIME SPENT: Total time coordinating discharge is 45 minutes. Job ID: [id number] MTDD
[2018-09-13 20:26] VITALS: BP 153/70
--- NOTE | 2018-09-14 18:30 | EKG ---
Test Reason : Blood Pressure : / mmHG Vent. Rate : 070 BPM Atrial Rate : 070 BPM P-R Int : 272 ms QRS Dur : 114 ms QT Int : 462 ms P-R-T Axes : 049 052 176 degrees QTc Int : 498 ms Sinus rhythm with 1st degree A-V block with occasional Premature ventricular complexes Left ventricular hypertrophy with repolarization abnormality Prolonged QT Abnormal ECG Confirmed by LEONORA DAY DO ([id number]), general expeditor CALDERON POWELL ([id number] on 09/14/2018 6:29:22 PM Referred By: Confirmed By:LEONORA DAY DO
== END 2018-09-13 19:05 | disposition home health service (06) | DRG 292 ==
LOC: ERS 16:27 → 2NO 21:00 → OBSVTOIN 21:00
PROVIDERS: ADMIT Internal Medicine; ATTEND Internal Medicine
DX: I11.0 Hypertensive heart disease with heart failure (principal); S32.010A Wedge compression fracture of first lumbar vertebra, initial encounter for closed fracture; G93.40 Encephalopathy, unspecified; I50.23 Acute on chronic systolic (congestive) heart failure; E11.9 Type 2 diabetes mellitus without complications; N40.0 Benign prostatic hyperplasia without lower urinary tract symptoms; Z86.73 Personal history of transient ischemic attack (TIA), and cerebral infarction without residual deficits; E78.5 Hyperlipidemia, unspecified; Z95.1 Presence of aortocoronary bypass graft; Z95.5 Presence of coronary angioplasty implant and graft; F41.9 Anxiety disorder, unspecified; F32.9 Major depressive disorder, single episode, unspecified; F03.90 Unspecified dementia, unspecified severity, without behavioral disturbance, psychotic disturbance, mood disturbance, and anxiety; Z79.899 Other long term (current) drug therapy; Z79.02 Long term (current) use of antithrombotics/antiplatelets; Z79.4 Long term (current) use of insulin; Z79.82 Long term (current) use of aspirin; E88.09 Other disorders of plasma-protein metabolism, not elsewhere classified; D64.9 Anemia, unspecified; R09.02 Hypoxemia
CPT/HCPCS: 36415; 36416; 70450; 71045; 71260; 80048; 80053; 80069; 81003; 82553; 83735; 83880; 84443; 84484; 85025; 87040; 93005; 93798; 96374; G8996-GN-CK; G8997-GN-CK; J0456; J0696; J1815; J1940; J7050

== ENCOUNTER 2018-11-19 16:51 | Emergency (ER) | payer MEDICARE ==
[2018-11-19 17:39] LABS: Bilirubin Negative (Negative); Blood, Urine Negative (Negative); Glucose, Urine (Dipstick) >=1000 mg/dL (Negative); Leukocyte Negative (Negative); Nitrite Negative (Negative); Protein, Urine (Dipstick) Negative (Neg-Trace); Urobilinogen 0.2 mg/dL (0.2-1.0)
[2018-11-19 17:42] LABS: Clarity CLEAR (Clear)
--- NOTE | 2018-11-19 17:47 | RAD ---
CHEST ONE VIEW: 11/19/18 COMPARISON: 09/11/18 HISTORY: Hyperglycemia. Altered mental status. Redemonstration of median sternotomy wires, atherosclerosis of the aorta. Normal cardiac silhouette. Pulmonary vessels and hilum are normal. Costophrenic angles are clear. Chronic changes in the lung pa renchyma. No masses or consolidation. No pneumothorax or acute osseous abnormality. IMPRESSION: No acute cardiopulmonary process. POS: [facility]
[2018-11-19 17:56] LABS: Base Excess-Venous 4.4 mmol/L (-2.0 to 3.0); Bicarbonate (HCO3v) 30.7 mmol/L (22.0-28.0); CO2 Tension (PvCO2) 50.5 mmHg (40.0-50.0); Chloride 104 mmol/L (98-107); Hemoglobin - Calc 14.9 g/dL (14.0-18.0); O2 Tension (PvO2) 31.2 mmHg (35.0-45.0); Potassium 3.5 mmol/L (3.5-5.1); Sodium 142 mmol/L (138-145); T. Carbon Dioxide 32.2 mmol/L (22.0-28.0); pH (Venous) 7.391 (7.320-7.430); vO2 Saturation-calc 58.2 % (60.0-85.0)
[2018-11-19 18:04] LABS: #Eosinphils 0.2 thou/uL (0.0-0.7); #Lymphocytes 1.8 thou/uL (1.20-3.40); #Monocytes 0.5 thou/uL (0.11-0.59); #Neutrophils 5.5 thou/uL (1.40-6.50); %Basophils 0.6 % (0.0-1.0); %Eosinophils 2.1 % (0.0-10.0); %Lymphocytes 22.4 % (21.0-51.0); %Monocytes 5.8 % (0.0-10.0); %Neutrophils 69.1 % (42.0-75.0); Hemoglobin 13.7 g/dL (14.0-18.0); Mean Corpuscular Hemoglobin 30.7 pg (27.0-31.0); Mean Corpuscular Volume 95.9 fL (78.0-98.0); Platelet Count 198 thou/uL (130-400); RBC Distribution Width 15.2 % (11.5-14.5); Red Blood Cell (RBC) Count 4.47 mill/uL (4.70-6.10)
[2018-11-19 18:27] LABS: ALT (SGPT) 10 U/L (8-55); AST (SGOT) 11 U/L (5-34); Albumin 3.7 g/dL (3.4-4.8); Alkaline Phosphatase 202 U/L (40-150); Anion Gap 12 mmol/L (10-20); BUN (Urea Nitrogen) 19 mg/dL (8.4-25.7); Bilirubin, Total 0.3 mg/dL (0.2-1.2); CK (CPK) 33 U/L (30-200); Calc. Creatinine Clearance 0 mL/min (70-130); Calcium 9.3 mg/dL (7.8-10.44); Carbon Dioxide 29 mmol/L (23-31); Chloride 103 mmol/L (98-107); Estimated GFR-MDRD 49; Globulin 2.8 g/dL (2.4-3.5); Glucose 503 mg/dL (83-110); Lipase 25 U/L (8-78); Potassium 3.6 mmol/L (3.5-5.1); Protein, Total 6.5 g/dL (5.8-8.1); Sodium 140 mmol/L (136-145)
[2018-11-19] MEDS ORDERED: Insulin Regular 300 UNITS/3 ML VIAL ONE (19:48)
== END 2018-11-19 20:33 | disposition home or self-care (01) ==
LOC: ERS 16:51
DX: E11.65 Type 2 diabetes mellitus with hyperglycemia (principal); E78.5 Hyperlipidemia, unspecified; I25.2 Old myocardial infarction; I11.0 Hypertensive heart disease with heart failure; I50.9 Heart failure, unspecified; Z87.891 Personal history of nicotine dependence; Z79.899 Other long term (current) drug therapy; Z79.82 Long term (current) use of aspirin
CPT/HCPCS: 36415; 36416; 71045; 80053; 81003; 82010; 82330; 82550; 82803; 83690; 83880; 84484; 85025; 87040; 87086; 93005; 96374; J1815